=== PATIENT | male | born 1955 | race Caucasian/White ===

== ENCOUNTER 2024-09-15 04:00 | Inpatient (IN) | payer OTHER, SELFPAY ==
[2024-09-14 20:19] VITALS: BP 126/71
[2024-09-14 20:49] LABS: Hematocrit 35.9 % (39.0-52.0); Hemoglobin 12.8 g/dL (13.0-18.0); Mean Corp Hgb Conc. 35.7 g/dL (33.0-37.0); Mean Corpuscular Volume 86.7 fL (80.0-94.0); Nucleated Red Blood Cells % 0 % (-); Platelet Count 165 10^3/uL (130-400); Red Cell Dist. Width 12.9 % (11.5-14.5)
[2024-09-14 21:10] LABS: ALT (SGPT) 36 U/L (0-50); AST (SGOT) 30 U/L (17-59); Albumin 4.2 g/dl (3.5-5.0); Alkaline Phosphatase 69 U/L (38-126); Blood Urea Nitrogen 17 mg/dl (9-20); Calcium 8.9 mg/dl (8.4-10.2); Carbon Dioxide 26 mmol/L (22-30); Glucose 157 mg/dl (70-99); Potassium 4.1 mmol/L (3.5-5.1); Sodium 139 mmol/L (135-145); Total Protein 7.1 g/dl (6.3-8.2); eGFR > 60.00
[2024-09-14 21:15] LABS: Chloride 107 mmol/L (98-107)
[2024-09-14 21:17] LABS: COVID-19 Antigen Negative (Negative)
--- NOTE | 2024-09-14 22:16 | ED.GENMED ---
History of Present Illness
General
Chief Complaint: Fall
Source: patient and spouse
Time Seen by Provider: 09/14/24 22:06
History of Present Illness
History of Present Illness:
Note:
CHIEF COMPLAINT(S)
Fall and discomfort in the abdomen.
HISTORY OF PRESENT ILLNESS
The patient is a 69-year-old male who experienced a fall after returning from vacation. The incident occurred when he leaned on a suitcase that rolled away, causing him to fall onto his knees. Following the fall, the patient reported feeling
uncomfortable, particularly describing discomfort in the abdomen. He mentioned having difficulty sleeping but denied experiencing fever or diarrhea. The patient acknowledged consuming alcohol, but stated he was also eating and drinking adequately,
mainly water or juice.
Upon examination, the patients white blood cell count was slightly elevated, as well as the lactic acid level, which may suggest dehydration or an infection. These findings prompted further evaluation. The plan includes obtaining a computed
tomography scan of the abdomen and performing a urinalysis. Due to the patients need for assistance with voiding, a catheter will be used to obtain a urine specimen. Intravenous fluids will also be administered to address possible dehydration.
SOCIAL DETERMINANTS AFFECTING HEALTH
The patient mentioned the consumption of alcohol.
PHYSICAL EXAM
- Afebrile, not in acute distress.
- Head: Horizontal surgical scar observed. Presence of ventriculoperitoneal shunt on the left side.
- Respiratory: Lungs clear on bilateral auscultation.
- Abdomen: Soft, non-distended, with tenderness in the left lower quadrant.
- Back: No spinal tenderness or deformity.
- Extremities: Full range of motion, normal pulses in all extremities, no edema noted.
- Nursing notes reviewed and vital signs reviewed.
PROBLEM LIST
Acute Problems:
- Elevated white blood cell count and lactic acid level.
- Abdominal discomfort.
- Recent fall.
PLAN
- Obtain a computed tomography scan of the abdomen.
- Perform a urinalysis.
- Insert a urinary catheter to obtain a specimen and assist with voiding.
- Administer intravenous fluids to address potential dehydration.
- Monitor the patient�s condition in the hospital setting.
DIFFERENTIAL DIAGNOSIS
The Differential Diagnosis includes, in no particular order and is not limited to:
- Dehydration
- Urinary tract infection
- Gastroenteritis
- Abdominal injury from fall
- Appendicitis
- Diverticulitis
- Viral infection
- Lower gastrointestinal tract bleeding
- Pancreatitis
- Alcohol-related abdominal discomfort
CARE-UPDATE
09/15/24 - 00:00
Patient exhibits patchy opacity in the left lower lobe on imaging, suggestive of pneumonia, accompanied by a cough. Plan to admit to the hospital for treatment. Initiating antibiotic therapy with Rocephin and Azithromycin. Chest X-ray has been
ordered to confirm pneumonia diagnosis.
Disposition:
SUMMARY OF ENCOUNTER
The patient, a 69-year-old male, presented to the emergency department experiencing discomfort in the abdomen following a fall. Initial lab results indicated a slightly elevated white blood cell count and lactic acid level suggestive of dehydration
or infection. Imaging later revealed a patchy opacity in the left lower lobe, suggestive of pneumonia, accompanied by a cough. Antibiotic therapy with ceftriaxone and azithromycin was initiated. A computed tomography scan of the abdomen and
urinalysis were also planned. Given his condition, it was decided to admit the patient for further treatment and observation.
DISPOSITION
Admit to hospitalist, telemetry level care.
PLAN
Monitor patients condition in the hospital setting. Administer antibiotics for pneumonia and intravenous fluids to address dehydration. Complete a computed tomography scan of the abdomen and perform a urinalysis using a catheter to obtain a specimen.
INDEPENDENT REVIEW OF LABS AND INTERPRETATION OF TESTS
My independent review of the complete blood count is an elevated white blood cell count. My independent review of the lactate test is an elevated lactic acid level.
PROCEDURES
Urinary catheter insertion for specimen collection and assistance with voiding.
MEDICATION RECONCILIATION
Antibiotic therapy initiated with ceftriaxone (Rocephin) and azithromycin.
MEDICAL DECISION MAKING
- Number and Complexity of Problems Addressed: Chronic conditions affecting care include diabetes, seizures, brain cancer. Differential diagnoses considered were dehydration, urinary tract infection, gastroenteritis, abdominal injury from fall,
appendicitis, diverticulitis, viral infection, lower gastrointestinal tract bleeding, pancreatitis, alcohol-related abdominal discomfort.
- Data:
- Category 1
- Tests and documents reviewed: Complete blood count, lactate test, and radiology imaging indicating pneumonia in the left lower lobe.
- Risk: Consideration of admission was warranted due to the complexity and risk of the patients presenting complaint, his recent fall, abnormal lab findings, and imaging suggestive of pneumonia. The decision to admit was made to manage and monitor
his condition closely.
DIAGNOSIS
- Pneumonia, unspecified organism (ICD-10: J18.9)
- Abdominal discomfort (ICD-10: R10.9)
- Dehydration (ICD-10: E86.0)
- Fall (ICD-10: W19.XXXA)
Past History
Past History
ED Past Medical History: Cancer, CVA, HTN and IDDM
ED Past Surgical History: Brain and Orthopedic
Social History
Tobacco: Non-smoker
Alcohol: None
Drug: None
Personal:
Living: with family
Employment: Retired
Family History
Family History: Other (n/c) and Unable to obtain (pt acutely ill)
Phy Exam
Physical Exam
Physical Exam:
.
Course
Orders/Labs/Results
Orders:
Orders
09/14/24 20:27
Hip, Left 2-3 Views [CR Hip - LT w/wo Pel 2-3 Vw*] Urgent
Comment:
Reason For Exam: fall
Include a pelvis x-ray?: Yes
09/14/24 20:28
CT Head W/o Iv Contrast Urgent
Comment:
Reason For Exam: fall, denies head strike
09/14/24 20:37
COVID-19 Antigen Urgent
Source: Nasal Swab
Complete Blood Count/With Diff Urgent
Comprehensive Metabolic Panel Urgent
Lactic Acid Urgent
Influenza A+B Rapid Molecular Urgent
[facility] Source: Nasal Swab
Specimen Description:
09/14/24 22:18
CT Abd/pelvis W Iv Cont Urgent
Comment:
Reason For Exam: LLQ pain
09/14/24 22:19
0.9% Sodium Chloride 1000 ml [Nss] 1,000 ml IV BOLUS
09/14/24 22:38
Urinalysis Reflex To Culture Urgent
Date Specimen was Collected: 09/14/24
Time Specimen was Collected: 22:37
Urine Microscopic Reflex Cult Urgent
Blood Culture Q30M
[facility] Source: Blood/Venous
Specimen Description:
Blood Culture Q30M
[facility] Source: Blood/Venous
Specimen Description:
09/14/24 23:40
CR Chest - 2 Views Urgent
Comment:
Reason For Exam: weakness, possible aspiration
09/14/24 23:58
Azithromycin 500 mg/250 ml [Zithromax Infusion] 500 mg in 250 ml IV NOW
CefTRIAXone [Rocephin] 2,000 mg IV NOW STA
Abnormal Lab Results
09/14/24 09/14/24
20:37 22:38
WBC 17.9 H 10^3/uL
(4.8-10.8)
RBC 4.14 L 10^6/uL
(4.70-6.10)
Hgb 12.8 L g/dL
(13.0-18.0)
Hct 35.9 L %
(39.0-52.0)
Abs Immat Gran (auto) 0.2 H 10^3/uL
(0-0.05)
Absolute Neuts (auto) 15.8 H 10^3/uL
(1.4-6.5)
Absolute Lymphs (auto) 0.7 L 10^3/uL
(1.2-3.4)
Absolute Monos (auto) 1.1 H 10^3/uL
(0.1-0.6)
Immature Gran % 0.8 H %
(0-0.5)
Neutrophils % 88.2 H %
(42.2-75.2)
Lymphocytes % 4.1 L %
(20.5-51.1)
Glucose 157 H mg/dl
(70-99)
Lactic Acid 2.4 H mmol/L
(0.7-2.0)
Ur Occult Blood Reflex 2+ A
(Negative)
Urine RBC 7-10 A /HPF
(0-2)
Urine Bacteria (Reflex) Few A
(Negative)
Urine Albumin (Reflex) 1+ A
(Neg - Trace)
09/14/24 20:37
09/14/24 20:37
Vital Signs
Initial and Last Documented VS:
Initial Vital Signs
Temp Pulse Resp BP Pulse Ox
99.5 F 85 16 126/71 98
09/14/24 20:19 09/14/24 20:19 09/14/24 20:19 09/14/24 20:19 09/14/24 20:19
Last Documented Vital Signs
Temp Pulse Resp BP Pulse Ox
99.5 F 81 16 133/65 96
09/14/24 20:19 09/14/24 23:30 09/14/24 23:30 09/14/24 22:40 09/14/24 23:30
*Pulse Oximetry
SaO2: 98
Oxygen Mode of Delivery: Room air
Patient hypoxic: no
*Critical Care Note
Total Time (30-74mins, 75-104mins- exclusive of procedures): Not Applicable
ED Attending Note
-
Portions of this chart may have been created with voice recognition software.� Occasional wrong word or��sound alike� substitutions may have occurred due to the inherent limitations of voice recognition software.
Discharge Plan
Departure
Patient Disposition: Admit
Date of Disposition: 09/15/24
Time of Disposition: 00:00
Admit to: Telemetry
Presentation/result/management discussed w/ accepting MD/DO: Hospitalist
Condition: Fair
Discharge Problem:
Community acquired pneumonia of left lower lobe of lung, Weakness
Prescriptions:
No Action
metformin 500 mg Tablet
500 mg PO BID
Rx Instructions:
4 tabs bid
atorvastatin [Lipitor] 10 mg Tablet
10 mg PO HS
venlafaxine 37.5 mg Tablet
37.5 mg PO BID
metoprolol tartrate 50 mg Tablet
50 mg PO BID
Xarelto 20 mg Tablet
20 mg PO QPM
Trulicity 0.75 mg/0.5 mL Pen Injector
0.75 mg SC GRAYSON
aspirin 81 mg Tablet,Delayed Release (Dr/Ec)
81 mg PO DAILY
levetiracetam 750 mg tablet
750 mg PO BID
modafinil 100 mg tablet
100 mg PO DAILY
solifenacin 10 mg tablet
10 mg PO DAILY
Referrals:
Gavino Bean MD [Family Provider, Family Practice]
Interventions
Interventions:
*Risk Screen - Suicide Last Done: 09/14/24 23:24
*General Assessment Last Done: 09/14/24 23:24
*Neglect/Abuse Screening Last Done: 09/14/24 23:24
*ED- Fall Risk Assessment Last Done: 09/14/24 23:24
*ED COVID-19 Vaccine History Last Done: 09/14/24 23:24
ED-Musculoskeletal Assessment Last Done: 09/14/24 23:24
ED- Neurological Assessment Last Done: 09/14/24 23:24
ED-Skin Assessment Last Done: 09/14/24 23:24
Discharge Date and Time
Print Language: AMERICAN
[2024-09-14] MEDS: NSS 1000 IV (22:38)
[2024-09-14 22:40] VITALS: BP 133/65
[2024-09-14 22:46] LABS: Urine Character Clear (Clear)
[2024-09-14 22:52] LABS: Urine Squamous Cell 0-2 /LPF (Few)
[2024-09-14 22:55] LABS: Urine White Cell 0-2 /HPF (0-5)
[2024-09-14 23:57] VITALS: BP 140/73
[2024-09-15] VITALS (13 sets, daily range): BP systolic 118–166; BP diastolic 58–110; PULSE 76–84; O2SAT 94; BMI 31.2
[2024-09-15] MEDS: ROCEPHIN 2000 MG IV (00:40)
[2024-09-15] MEDS: ZITHROMAX INFUSION 250 IV (00:40)
--- NOTE | 2024-09-15 03:38 | HPS.HSE ---
Family Physician
-
Family Physician: Gavino Bean
Chief Complaint
-
Fall at Home
History of Present Illness
Patient is a 69y M with PMH significant for brain tumor s/p surgery and XRT, DM-II and hypertension who presents to ED for evaluation s/p fall at home. Patient states that he just returned from a trip to [place]. At home this AM he tripped over
his suitcase and fell to the floor. He notes that he landed on his knees and outstretched hands. He did not strike his head nor lose consciousness. Patient states that he was able to get up. He reportedly had some abdominal discomfort throughout
he day after his fall. He states that he has had a cough for about 2-3 days. This is non-productive. No SOB. No fevers / chills.
Patient presented to the ED this evening for further evaluation and is noted after extensive evaluation to have evidence of L base pneumonia.
He remains very weak and is unsteady on his feet.
Medical History
Past Medical History
Past Medical History: Reports Other
Additional Past Medical History:
Bran Tumor s/p Resection (x 2) and XRT
Seizure Disorder (none since 2nd brain surgery)
DM-II
Hypertension
Obesity
Past Surgical History: Reports Other
Additional Past Surgical History:
Brain Tumor Excision (x 2)
Left RIZWAN
Social History
Tobacco: Non-smoker
Alcohol: Occasional
Drug: None
Family History
Family History: Not pertinent
Allergies / Home Medications
Allergies reflects when Allergies were last updated in [employer].
Home Medications with original date entered in [employer]
Allergy/Medication List:
Patient cannot recall current medications.
If medication reconciliation has not been performed, why?: Medication List N/A (Patient cannot recall current medications.)
Review of Systems
-
History Source: Patient
A 12 point ROS was completed and negative except as noted: Yes
Constitutional: Reports Fatigue; Denies Fever or Chills
EENT: Reports Sore Throat
Respiratory: Reports Cough; Denies Trouble Breathing
Cardiac: Denies Chest Pain, Diaphoresis, Palpitations or Syncope
Abdomen/GI: Denies Abdominal Pain, Nausea, Vomiting or Diarrhea
: Denies Dysuria, Frequency or Flank Pain
Musculoskeletal: Reports Joint Pain (Bilateral knees); Denies Muscle Pain or Edema
Neurological: Denies Dizzy or Headache
Psych: Denies Depression or Anxiety
Physical Exam
Vital Signs
Vital Signs
Temp Pulse Resp BP Pulse Ox
99.5 F 69 11 148/74 94
09/14/24 20:19 09/15/24 03:15 09/15/24 03:15 09/15/24 03:00 09/15/24 03:15
Physical Exam
General: Other (69y M in no acute distress.)
HEENT: Moist mucous membranes and PERRLA
Respiratory: Clear and Other (Decreased at bases - otherwise clear.); No Wheezes, Rales or Rhonchi
Cardiac: S1/S2 and Regular Rhythm; No Murmur
GI: Soft, Non Tender, Non Distended and Normal Bowel Sounds
Musculoskeletal: No Clubbing, No Cyanosis and No Edema
Neuro: AO x 3 and Nonfocal/grossly intact
Laboratory Results
-
09/14/24 20:37
09/14/24 20:37
Laboratory Results
Lactic Acid 2.4 mmol/L (0.7-2.0) H 09/14/24 20:37
Total Bilirubin 1.0 mg/dl (0.2-1.3) 09/14/24 20:37
AST 30 U/L (17-59) 09/14/24 20:37
ALT 36 U/L (0-50) 09/14/24 20:37
Alkaline Phosphatase 69 U/L (38-126) 09/14/24 20:37
Impression/Plan
-
A/P: Patient is a 69y M with PMH significant for prior brain surgery and DM-II who presents to ED for evaluation s/p fall at home.
LLL Pneumonia
- Admit for further evaluation and treatment.
- Patient has leukocytosis and imaging evidence of L posterior lower lobe infiltrate on CXR and CT.
- Abx for CAP.
- Supportive care including IVFs, O2, etc.
- Follow temperature curve. Monitor for clinical improvement.
Fall at Home
- Potentially increased weakness secondary to the above.
- notes that patient does have chronic gait issues however.
- PT evaluation.
- No evident injury related to today's fall. Imaging studies in the ED unremarkable in this regard.
Seizure Disorder
History of Brain Tumor
- s/p Resection x 2 and XRT.
- Has had no seizure activity since his second brain surgery.
- Continue current Keppra dosing and monitor for any new seizure activity.
- Has ASSISTANT ANALYST shunt in place and imaging shows no hydrocephaly, etc.
DM-II
- Stable. Follow glucose and cover with SSI as needed.
- Update A1C.
DVT Prophylaxis: Lovenox
Code Status: Full
Patient requires formal med reconciliation with pharmacy in the AM. He is unaware of his current meds / doses and most recent available list is several years old.
--- NOTE | 2024-09-15 05:10 | PTCARENOTE ---
Pt arrived to room 414-01. Pt transferred from stretcher to bed. Pt AAOx3, VSS. Pt oriented to room, call cee placed within reach. Bed alarm in place.
[2024-09-15] MEDS: NSS 1000 IV ×2 (05:20→20:04)
[2024-09-15 08:32] LABS: Glucose - Point of Care 134 mg/dl (70-99)
[2024-09-15] MEDS: TOPROL XL 50 MG PO ×2 (08:38→20:07)
[2024-09-15] MEDS: NOVOLOG FLEXPEN-MODERATE RESISTANCE SC (08:38)
[2024-09-15] MEDS: KEPPRA 750 MG PO ×2 (08:38→20:06)
[2024-09-15] MEDS: LOW STRENGTH ASPIRIN 81 MG PO (08:39)
[2024-09-15 09:13] LABS: Hematocrit 32.5 % (39.0-52.0); Hemoglobin 11.4 g/dL (13.0-18.0); Mean Corp Hgb Conc. 35.1 g/dL (33.0-37.0); Mean Corpuscular Volume 86.7 fL (80.0-94.0); Platelet Count 147 10^3/uL (130-400); Red Cell Dist. Width 13.0 % (11.5-14.5)
[2024-09-15 09:52] LABS: Blood Urea Nitrogen 15 mg/dl (9-20); Calcium 8.2 mg/dl (8.4-10.2); Carbon Dioxide 27 mmol/L (22-30); Chloride 108 mmol/L (98-107); Estimated Creatinine Clearance 99 ml/min; Glucose 115 mg/dl (70-99); Potassium 3.7 mmol/L (3.5-5.1); Sodium 140 mmol/L (135-145); eGFR > 60.00
[2024-09-15 10:49] LABS: Glycohemoglobin (HgbA1c) 6.6 % (4.0-5.6)
[2024-09-15 11:47] LABS: Glucose - Point of Care 155 mg/dl (70-99)
[2024-09-15] MEDS: NOVOLOG FLEXPEN-MODERATE RESISTANCE 1 UNITS SC ×2 (13:31→17:23)
[2024-09-15 17:19] LABS: Glucose - Point of Care 168 mg/dl (70-99)
[2024-09-15] MEDS: FLAGYL 500 MG 100 IV (17:23)
[2024-09-15] MEDS: LIPITOR 10 MG PO (17:23)
[2024-09-15] MEDS: ELIQUIS 2.5 MG PO (20:06)
[2024-09-15] MEDS: VIBRAMYCIN 100 MG PO (20:07)
[2024-09-15 21:09] LABS: Glucose - Point of Care 170 mg/dl (70-99)
[2024-09-16] MEDS: FLAGYL 500 MG 100 IV ×4 (00:44→23:53)
[2024-09-16] MEDS: ROCEPHIN 1000 MG IV ×2 (00:45→23:53)
[2024-09-16] MEDS: STERILE WATER FOR INJECTION 10 ML IV ×2 (00:45→23:53)
[2024-09-16 03:29] VITALS: BP 146/86
[2024-09-16 06:00] VITALS: BMI 30.9
[2024-09-16 07:12] LABS: Hematocrit 33.4 % (39.0-52.0); Hemoglobin 11.6 g/dL (13.0-18.0); Mean Corp Hgb Conc. 34.7 g/dL (33.0-37.0); Mean Corpuscular Volume 87.2 fL (80.0-94.0); Platelet Count 151 10^3/uL (130-400); Red Cell Dist. Width 13.1 % (11.5-14.5)
[2024-09-16 08:25] LABS: Glucose - Point of Care 138 mg/dl (70-99)
[2024-09-16] MEDS: NSS 1000 IV ×2 (08:25→17:20)
[2024-09-16] MEDS: NOVOLOG FLEXPEN-MODERATE RESISTANCE SC (08:25)
[2024-09-16] MEDS: VIBRAMYCIN 100 MG PO ×2 (08:30→21:18)
[2024-09-16] MEDS: TOPROL XL 50 MG PO ×2 (08:30→21:18)
[2024-09-16 08:31] LABS: Blood Urea Nitrogen 20 mg/dl (9-20); Calcium 8.5 mg/dl (8.4-10.2); Carbon Dioxide 24 mmol/L (22-30); Chloride 112 mmol/L (98-107); Estimated Creatinine Clearance 89 ml/min; Glucose 149 mg/dl (70-99); Potassium 4.1 mmol/L (3.5-5.1); Sodium 142 mmol/L (135-145); eGFR > 60.00
[2024-09-16] MEDS: KEPPRA 750 MG PO ×2 (08:31→21:17)
[2024-09-16] MEDS: EFFEXOR XR 37.5 MG PO (08:31)
[2024-09-16] MEDS: DIOVAN 40 MG PO (08:31)
[2024-09-16] MEDS: PROVIGIL 200 MG PO (08:31)
[2024-09-16] MEDS: ELIQUIS 2.5 MG PO ×2 (08:31→21:18)
[2024-09-16] MEDS: PROCARDIA XL (EXTENDED RELEASE) 30 MG PO (08:31)
[2024-09-16] MEDS: DETROL LA 4 MG PO (08:31)
[2024-09-16] MEDS: LOW STRENGTH ASPIRIN 81 MG PO (08:32)
[2024-09-16 08:50] VITALS: BP 133/87; BP 138/81; BP 144/75; PULSE 72; PULSE 73; PULSE 76
[2024-09-16 11:31] VITALS: BP 158/88
[2024-09-16 11:55] LABS: Glucose - Point of Care 150 mg/dl (70-99)
--- NOTE | 2024-09-16 12:49 | W.PN.HOSP.TC ---
Today's Communication/Plan
-
Continue with IV ceftriaxone, Flagyl and Zithromax
Bowel regimen
PT OT eval
Assessment / Plan
Assessment / Plan
A/P: Patient is a 69y M with PMH significant for prior brain surgery and DM-II who presents to ED for evaluation s/p fall at home.
Acute diverticulitis involving the junction of sigmoid colon and distal descending colon.
Seems symptomatic.
Has recent issues with change in bowel habits with constipation.
Continue ceftriaxone initiated for possibility of a pneumonia. Flagyl was added yesterday by me.
Start on bowel regimen.
Advised to follow-up with GI in 6 to 8 weeks time for colonoscopy.
LLL airspace disease.
Currently without any active pulmonary symptoms.
Patient did have symptom of nonproductive cough prior to going to his [place] trip. Currently improved cough and no shortness of breath.
- Unclear if it is pneumonia and if it is as if bacterial or viral.
He seems to be asymptomatic.
Continue with ceftriaxone and Zithromax and follow chest x-ray in 4 to 6 weeks time.
Fall at Home
- Potentially increased weakness secondary to the above.
- notes that patient does have chronic gait issues however.
- PT evaluation.
- No evident injury related to today's fall. Imaging studies in the ED unremarkable in this regard.
Seizure Disorder
History of Brain Tumor
- s/p Resection x 2 and XRT.
- Has had no seizure activity since his second brain surgery.
- Continue current Keppra dosing and monitor for any new seizure activity.
- Has HEALTH CARE FACILITY ADMINISTRATOR shunt in place and imaging shows no hydrocephaly, etc.
DM-II
- Stable. Follow glucose and cover with SSI as needed.
- Update A1C.
DVT Prophylaxis: Lovenox
Code Status: Full
Total time spent on today's encounter was 52 minutes which included time spent in counseling the patient/family regarding diagnosis and treatment plan as listed above, goals of care, and symptom management. Case was discussed with nursing staff,
specialists, and care coordinators/case management. All labs and imaging personally reviewed by me. Remainder the time spent in detailed review of previous records, lab data, imaging, and other medical provider documentation.
Anticipated Discharge: > 48 hours
Subjective/Interval History
-
Date of Service: September 16, 2024
Patient feels in general improved. He came with weakness and fall.
On further questioning he says for the last 2 months he has seen changes with his bowel habits. He is getting more more constipated. Having couple of bowel movements in a week. Some lower abdominal discomfort noted. No nausea vomiting or fevers.
Prior to going down to [place] for trip with his family he had a nonproductive cough which he feels is improving. Denies shortness of breath.
He remembers having a colonoscopy once when he was in 50s and no further follow-up screening colonoscopy. Denies weight gain or loss
Objective Data
-
Labs:
Laboratory Results
09/16/24
06:49
WBC 9.6
Hgb 11.6 L
Hct 33.4 L
Plt Count 151
Sodium 142
Potassium 4.1
Chloride 112 H
Carbon Dioxide 24
BUN 20
Creatinine 1.0
Glucose 149 H
Calcium 8.5
Vital Signs:
Vital Signs
Temp Pulse Resp BP Pulse Ox
98.5 F 68 16 158/88 94
09/16/24 11:31 09/16/24 11:31 09/16/24 11:31 09/16/24 11:31 09/16/24 11:31
I&O
09/15/24 09/16/24 09/17/24
06:59 06:59 06:59
Intake Total 1080 / 1080 480 / 480
Output Total 200 / 200 850 / 850 400 / 400
Balance -200 / -200 230 / 230 80 / 80
Physical Exam
-
General: Comfortable
Respiratory: Non Labored Respirations; Negative Wheezes, Crackles or Accessory Resp Muscle Use
Cardiac: Regular Rhythm and S1/S2; Negative Tachycardic
GI: Soft, Nondistended, Normal Bowel Sounds and Tender (In the left lower quadrant without rebounding or guarding)
Neuro: AO x 3
Psych: Calm; Negative Confused
Data Reviewed
-
Labs: Labs Reviewed by me
[2024-09-16] MEDS: NOVOLOG FLEXPEN-MODERATE RESISTANCE 1 UNITS SC ×2 (12:54→17:23)
[2024-09-16] MEDS: MIRALAX 17 GRAMS PO (14:40)
[2024-09-16] MEDS: COLACE 100 MG PO ×2 (14:40→21:18)
--- NOTE | 2024-09-16 15:13 | CM ---
CM reviewed chart, patient seen bedside, initial assessment completed. Patient resides with his in a multiple story home, one step to enter. Patient reports he has a rolling walker at home, reports it is old and feels he needs a new one-
patient unsure if walker is older than 5 years. Patient reports he has had VN in past set up through [facility], has been to [facility], then [facility]. Patient confirms PCP Gavino Bean, Pharmacy [facility], patient believes he has
prescription coverage and will call to confirm. Patient denies insecurities at home, does share that his 's job is not 100% secure, agreeable to resources from [email or web address]- will provide information and place on patients chart. CM discussed
PT recommendation of home therapy, patient declining, reports his does not really like people coming to the home, reports he is current with outpatient therapy in [place]. CM will continue to follow for all discharge planning needs.
Plan; home with , will continue outpatient therapy services.
[2024-09-16 15:17] VITALS: BP 119/72
[2024-09-16 16:48] LABS: Glucose - Point of Care 162 mg/dl (70-99)
[2024-09-16] MEDS: LIPITOR 10 MG PO (17:20)
[2024-09-16] MEDS: MUCINEX 600 MG PO (21:18)
[2024-09-16] MEDS: TESSALON PERLES 100 MG PO (21:18)
[2024-09-16 21:25] VITALS: BP 148/75
[2024-09-16 21:26] LABS: Glucose - Point of Care 144 mg/dl (70-99)
[2024-09-16 23:45] VITALS: BP 144/89
[2024-09-17 03:34] VITALS: BP 154/93
[2024-09-17 06:00] VITALS: BMI 29.9
[2024-09-17 07:00] VITALS: BP 140/74; BP 142/100; BP 144/91; PULSE 71; PULSE 74
[2024-09-17 08:55] LABS: Glucose - Point of Care 138 mg/dl (70-99)
[2024-09-17] MEDS: NOVOLOG FLEXPEN-MODERATE RESISTANCE SC (09:11)
--- NOTE | 2024-09-17 09:20 | W.PN.HOSP.TC ---
Today's Communication/Plan
-
Discharge today
Assessment / Plan
Assessment / Plan
A/P: Patient is a 69y M with PMH significant for prior brain surgery and DM-II who presents to ED for evaluation s/p fall at home.
Acute diverticulitis involving the junction of sigmoid colon and distal descending colon.
Seems symptomatic.
- Has recent issues with change in bowel habits with constipation.
- Advised to follow-up with GI in 6 to 8 weeks time for colonoscopy.
- Currently on Rocephin/Flagyl/Doxy
- Change antibiotics to Augmentin/Doxy to cover for pneumonia and diverticulitis
- Medically stable for discharge to continue antibiotics to complete 7-day course
- Follow-up with PCP in 1 week
LLL airspace disease.
Currently without any active pulmonary symptoms.
Patient did have symptom of nonproductive cough prior to going to his [place] trip. Currently improved cough and no shortness of breath.
- Unclear if it is pneumonia and if it is as if bacterial or viral.
- Currently on Rocephin/Flagyl/Doxy
- Change antibiotics to Augmentin/Doxy to cover for pneumonia and diverticulitis
Fall at Home
- Potentially increased weakness secondary to the above.
- notes that patient does have chronic gait issues however.
- PT evaluation - rec HH
- No evident injury related to today's fall. Imaging studies in the ED unremarkable in this regard.
Seizure Disorder
History of Brain Tumor
- s/p Resection x 2 and XRT.
- Has had no seizure activity since his second brain surgery.
- Continue current Keppra dosing and monitor for any new seizure activity.
- Has ALLEY CLEANER shunt in place and imaging shows no hydrocephaly, etc.
DM-II
- Stable. Follow glucose and cover with SSI as needed.
DVT Prophylaxis: Lovenox
Code Status: Full
Updated on phone 09/17, discussed with Dr. Hong's nurse 09/17
Physical Exam
General: No acute distress
HEENT: Normocephalic, Atraumatic, EOMI, MMM
Respiratory: Clear to Auscultation bilaterally
Cardiac: Normal S1/S2, Regular Rate and Rhythm
GI: Soft, Nontender, Nondistended, Normal Bowel Sounds
Extremities: No Clubbing, Cyanosis, or Edema
Neuro: Chronic weakness noted
Derm: Healing abrasion on right knee noted
Anticipated Discharge: Today
Subjective/Interval History
-
Date of Service: September 17, 2024
Patient denies abdominal pain. No nausea, no vomiting. No constipation, no diarrhea. His cough is improved. Denies dyspnea with activity, denies shortness of breath. No fever.
Objective Data
-
Vital Signs:
Vital Signs
Temp Pulse Resp BP Pulse Ox
98.6 F 68 16 154/93 95
09/17/24 07:00 09/17/24 03:34 09/17/24 07:00 09/17/24 03:34 09/17/24 07:00
I&O
09/16/24 09/17/24 09/18/24
06:59 06:59 06:59
Intake Total 1080 / 1080 1270 / 1270
Output Total 850 / 850 2800 / 2800
Balance 230 / 230 -1530 / -1530
[2024-09-17] MEDS: KEPPRA 750 MG PO (09:27)
[2024-09-17] MEDS: PROCARDIA XL (EXTENDED RELEASE) 30 MG PO (09:28)
[2024-09-17] MEDS: VIBRAMYCIN 100 MG PO (09:29)
[2024-09-17] MEDS: COLACE 100 MG PO (09:29)
[2024-09-17] MEDS: TOPROL XL 50 MG PO (09:29)
[2024-09-17] MEDS: EFFEXOR XR 37.5 MG PO (09:29)
[2024-09-17] MEDS: MUCINEX 600 MG PO (09:29)
[2024-09-17] MEDS: LOW STRENGTH ASPIRIN 81 MG PO (09:29)
[2024-09-17] MEDS: ELIQUIS 2.5 MG PO (09:30)
[2024-09-17] MEDS: DETROL LA 4 MG PO (09:30)
[2024-09-17] MEDS: PROVIGIL 200 MG PO (09:30)
[2024-09-17] MEDS: FLAGYL 500 MG 100 IV (09:31)
[2024-09-17] MEDS: DIOVAN 40 MG PO (09:31)
[2024-09-17] MEDS: MIRALAX 17 GRAMS PO (09:31)
[2024-09-17] MEDS: FLUSH (NSS) 1 FLUSH IV (09:33)
--- NOTE | 2024-09-17 10:50 | PTCARENOTE ---
Care assumed of patient after report received from Allison MURPHY.
--- NOTE | 2024-09-17 10:51 | PTCARENOTE ---
Patient assessed. VSS. Neuro checks within normal limits for patient. Med rec completed. Report given to Alma Sandoval RN
[2024-09-17 11:18] LABS: Glucose - Point of Care 158 mg/dl (70-99)
[2024-09-17 12:08] VITALS: BP 168/91
[2024-09-17 12:51] VITALS: BP 151/89; PULSE 66; O2SAT 95
[2024-09-17] MEDS: BACITRACIN OINTMENT 1 APPLIC TOPICAL (13:42)
[2024-09-17] MEDS: NOVOLOG FLEXPEN-MODERATE RESISTANCE 1 UNITS SC (13:42)
--- NOTE | 2024-09-17 14:44 | W.DCSUMMARY ---
Discharge Summary
Discharge Data
Date of Admission: 09/15/24
Date of Discharge: 09/17/24
-
Pending Results: No
Hospital Course
Discharge diagnosis:
Pneumonia
Acute diverticulitis involving the junction of sigmoid colon and distal descending colon
Mechanical fall at home
Seizure disorder
History of brain tumor status post resection and radiation
History of ventriculoperitoneal shunt
Type [address]:
No acute intracranial hemorrhage. Subdural CSF attenuation is demonstrated immediately adjacent to the inner table of the right calvarium, similar to prior examination, with mild compression of the parietal and frontal cerebral cortex. Findings
consistent with chronic subdural hematoma. Similar to prior examination.
Generalized cortical atrophy is noted, similar to prior examination, with otherwise cerebral sulcal prominence in the frontal and parietal lobes, as well as bilateral lateral sulcus.
There is a focal CSF attenuation defect of the hayward and white matter in the paramidline right frontal lobe region, representing a postsurgical defect, similar to prior examination.
There is a ventricular shunt present on the left with the distal tip in the anterior horn of left lateral ventricle. No hydrocephalus.
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
Complex with mild to moderate white matter diminished attenuation involving the frontal lobe regions is relatively stable. Possible gliosis from previous radiation therapy versus chronic ischemic change. Stable.
Previous anterior right frontal craniotomy. Craniotomy flap intact. No craniotomy depression or displacement. No acute calvarial fracture.
Complete visualization of the paranasal sinuses, clear as far as visualized.
The mastoid air cells are clear.
There is a stent in the right intradural vertebral vein.
CT abdomen and pelvis:
Patchy parenchymal opacity within the left lower lobe, suggestive of pneumonia.
As described, CT findings suggesting diverticulitis in the anterior left pelvis, near the junction of the sigmoid colon and the distal descending colon. There is some stranding and edema of the adjacent retroperitoneal fascial planes and a small
amount of free pelvic fluid. No evidence of abscess. No evidence of free intraperitoneal air.
Of note, there is a ventriculoperitoneal shunt catheter with tip in the right pelvis, which could also be the source of free pelvic fluid.
Hospital course:
69-year-old male with a past medical history of seizure disorder, brain tumor status post resection and radiation, and [employer] shunt who was admitted for pneumonia. Patient was treated with Rocephin and doxycycline. He had a CT of the abdomen and
pelvis which showed acute diverticulitis. Flagyl was added. He was seen in conjunction with PT for his mechanical fall at home. PT recommends home care.
Patient has a [employer] shunt. Head CT did not show any hydrocephalus.
By the following day, patient's cough improved, he did not have any shortness of breath. He did not have any abdominal symptoms. He tolerated a diet. He is medically stable for discharge on Augmentin and doxycycline to complete a 7-day course.
He needs to follow-up with his PCP in 1 week, and his usual neurosurgeon, Dr. Hong as needed.
Disposition: Home with home care
Discharge planning: Required 39 minutes
Discharge Plan
-
Patient Disposition: Home with Home Care
Discharge Diagnosis/Procedures: Pneumonia, sigmoid diverticulitis, mechanical falls, history of brain tumor
Condition: Fair
Diet: Low Cholesterol
Activity: As tolerated
Driving Restrictions: As prior to admission
Activity Restrictions/Additional Instructions:
Please follow-up with your usual GI doctor for repeat colonoscopy, you are due.
Follow-up with your primary care doctor in 1 week, and Dr. Hong in 2-3 weeks.
Referrals:
Gavino Bean MD [Family Provider, Family Practice] - in one week
Prescriptions:
New
doxycycline hyclate 100 mg Capsule
100 mg PO Q12 5 Days Qty: 10 0RF
amoxicillin-pot clavulanate 875-125 mg Tablet
1 tab PO Q12H 5 Days Qty: 10 0RF
Continued
metformin 500 mg Tablet
500 mg PO BID
Rx Instructions:
4 tabs bid
atorvastatin [Lipitor] 10 mg Tablet
10 mg PO HS
venlafaxine 37.5 mg Tablet
37.5 mg PO BID
metoprolol tartrate 50 mg Tablet
50 mg PO BID
aspirin 81 mg Tablet,Delayed Release (Dr/Ec)
81 mg PO DAILY
levetiracetam 750 mg tablet
750 mg PO BID
modafinil 100 mg tablet
100 mg PO DAILY
solifenacin 10 mg tablet
10 mg PO DAILY
nifedipine 30 mg Tablet Extended Release 24hr
30 mg PO DAILY
valsartan 40 mg Tablet
40 mg PO DAILY
Eliquis 2.5 mg Tablet
2.5 mg PO BID
Discharge Orders:
Discharge Patient (As Directed); Ordered 09/17/24
Ordered By: Jelani Mathews
Discharge Date and Time
Discharge Date/Time: 09/17/24 17:30
Print Language: SALV[place]
[2024-09-17] MEDS: AUGMENTIN 875 MG/125 MG 1 TABLET PO (15:50)
[2024-09-17 16:09] VITALS: BP 122/74
== END 2024-09-17 17:30 | disposition home or self-care (01) | DRG 391 ==
LOC: 4 WEST ACU 04:00
PROVIDERS: Emergency Medicine; Internal Medicine; ADMITTING PHYSICIAN Hospitalist; ATTENDING PHYSICIAN Family Medicine; EMERGENCY PHYSICIAN Emergency Medicine; FAMILY PHYSICIAN Family Medicine
DX: K57.32 Diverticulitis of large intestine without perforation or abscess without bleeding (principal); J18.9 Pneumonia, unspecified organism; S06.5XAA Traumatic subdural hemorrhage with loss of consciousness status unknown, initial encounter; E87.20 Acidosis, unspecified; W18.30XA Fall on same level, unspecified, initial encounter; G40.909 Epilepsy, unspecified, not intractable, without status epilepticus; Z98.2 Presence of cerebrospinal fluid drainage device; Z85.841 Personal history of malignant neoplasm of brain; E11.9 Type 2 diabetes mellitus without complications; Z86.73 Personal history of transient ischemic attack (TIA), and cerebral infarction without residual deficits; I10 Essential (primary) hypertension; E66.9 Obesity, unspecified; Z68.29 Body mass index [BMI] 29.0-29.9, adult; E86.0 Dehydration; Z79.01 Long term (current) use of anticoagulants; Z79.84 Long term (current) use of oral hypoglycemic drugs
CPT/HCPCS: 70450; 71046; 73502; 74177; 80048; 80053; 81003; 81015; 82962; 83036; 83605; 85025; 85027; 87040; 87502; 87811; 87899; 96361; 96374; 96375; 97116; 97163; 97167; 97535; 99285; Q9967

== ENCOUNTER → 2024-11-17 10:23 | Outpatient (REF) | payer OTHER, SELFPAY | LOC: WDC 10:23 | PROVIDERS: ATTENDING PHYSICIAN Physician Assistant; FAMILY PHYSICIAN Family Medicine | DX: N63.31 Unspecified lump in axillary tail of the right breast (principal) | CPT/HCPCS: 76642; 77062; 77066 ==